=== PATIENT | female | born 1950 | race Caucasian/White ===

== ENCOUNTER → 2017-07-22 | Outpatient (CLI) | payer OTHER ==
[~2017-07-22] MED LIST: AZIT-18 PO; B.AN1CAP2 PO; CALC600T72 PO; CHOL20007 PO; CODE118S5 PO; CYAN1000 IJ; CYAN50TA3 PO; ESCI5TAB10 PO; IBUP200C71 PO; IBUP50DR47 PO; MULT-820 PO; SIME80TA49 PO; ZOLM5 PO; [UNRECOGNIZED DRUG - CODE] PO; [UNRECOGNIZED DRUG - CODE] PO
--- NOTE | 2017-07-23 08:54 | RADIOLOGY IMAGING REPORT ---
FACILITY: [facility] - [place] PATIENT NAME: LIV RILEY : [id number] MR: [id number] V: [id number] EXAM DATE: ORDERING PHYSICIAN: YUE LO TECHNOLOGIST: Sarah Chun PROCEDURE:BILATERAL DIGITAL SCREENING MAMMOGRAM WITH CAD ASSISTED INTERPRETATION & 3D TOMOSYNTHESIS COMPARISON:None. INDICATIONS:SCREENING FINDINGS: Mildly heterogeneous fibroglandular tissue is seen throughout the breasts. The parenchymal pattern has remained stable allowing for difference in mammographic technique & patient positioning. There is no evidence of malignant appearing mass, malignant appearing calcifications or other secondary sign of malignancy in either breast. DIAGNOSTIC CATEGORY 2--BENIGN FINDING. RECOMMENDATIONS: ROUTINE MAMMOGRAM AND CLINICAL EVALUATION. IMPRESSION: BIRADS 2: Benign finding No significant abnormality is seen Dictated by: Aarti Kiser M.D. on 07/22/2017 at 16:13 Transcribed by: BERKLEY on 07/23/2017 at 8:21 Approved by: Aarti Kiser M.D. on 07/23/2017 at 8:53 [facility]
== END ==
LOC: MAMO 08:27
PROVIDERS: ATTEND Family Medicine
DX: Z12.31 Encounter for screening mammogram for malignant neoplasm of breast (principal)
CPT/HCPCS: 77063; 77067

== ENCOUNTER → 2018-08-10 | Outpatient (CLI) | payer OTHER ==
[~2018-08-10] MED LIST changes: +IBUP-136 PO; -IBUP200C71 PO
--- NOTE | 2018-08-10 15:08 | RADIOLOGY IMAGING REPORT ---
FACILITY: [facility] - [place] PATIENT NAME: LIV RILEY : [id number] MR: [id number] V: [id number] EXAM DATE: [id number] ORDERING PHYSICIAN: YUE LO TECHNOLOGIST: Sarah Chun PROCEDURE:BILATERAL DIGITAL SCREENING MAMMOGRAM WITH CAD ASSISTED INTERPRETATION & 3D TOMOSYNTHESIS COMPARISON:07/22/2017, 04/17/16, 04/09/15 INDICATIONS:SCREENING TECHNIQUE: Routine CC & MLO 3D tomographic images were obtained of both breasts. CAD was used. FINDINGS: Subtle nodularity inferior Right breast is less than in compared exams. There is no dominate mass or suspicious microcalcifications in either breast BREAST DENSITY: Breast tissue demonstrates scattered fibroglandular densities.. DIAGNOSTIC CATEGORY 1--NEGATIVE. RECOMMENDATIONS: ROUTINE MAMMOGRAM AND CLINICAL EVALUATION. IMPRESSION: BIRADS 1: Negative. Recommend patient resume screening mammography in 1 year. Dictated by: Taiwo Burton M.D. on 08/10/2018 at 12:01 Transcribed by: BRIDGET on 08/10/2018 at 13:31 Approved by: Taiwo Burton M.D. on 08/10/2018 at 15:07 [facility]
== END ==
LOC: MAMO 00:40
PROVIDERS: ATTEND Family Medicine
DX: Z12.31 Encounter for screening mammogram for malignant neoplasm of breast (principal)
CPT/HCPCS: 77063; 77067